=== PATIENT | male | born 1955 | race Caucasian/White ===

== ENCOUNTER 2022-12-21 08:55 | Emergency (ER) | payer MEDICARE, MEDICAID ==
[~2022-12-21] VITALS: Ht 154.9 cm; Wt 69.1 kg
[~2022-12-21 08:55] MED LIST: AMLO-258 PO; ASPI-1450 PO; SIMV-260 PO
[2022-12-21] MEDS ORDERED: CYAN500T56 PO (09:06)
[2022-12-21] MEDS ORDERED: PANT-31 PO (09:06)
[2022-12-21] MEDS ORDERED: TAMS-13 PO (09:06)
[2022-12-21] MEDS ORDERED: DULO-113 PO (09:06)
[2022-12-21] MEDS ORDERED: ROSU10TA72 PO (09:06)
[2022-12-21] MEDS ORDERED: NIFE-46 PO (09:06)
[2022-12-21] MEDS ORDERED: PYRI-6 PO (09:06)
[2022-12-21] MEDS ORDERED: CARV12.530 PO (09:06)
[2022-12-21] MEDS ORDERED: PIOG15TA6 PO (09:06)
[2022-12-21] MEDS ORDERED: OMEP20 PO (09:06)
[2022-12-21] MEDS ORDERED: INSULIN SQ (09:06)
[2022-12-21] MEDS ORDERED: FINA-27 PO (09:06)
[2022-12-21] MEDS ORDERED: TRAZ-252 PO (09:06)
[2022-12-21] MEDS ORDERED: GABA-1181 PO (09:06)
[2022-12-21] MEDS ORDERED: EZET10TA13 PO (09:06)
[2022-12-21] MEDS ORDERED: CHOL25TA4 PO (09:06)
[2022-12-21] MEDS ORDERED: CHLO25TA3 PO (09:06)
[2022-12-21] MEDS ORDERED: INSULIN REGULAR, HUMAN 100 UNITS/ML IVP ONE (09:30)
[2022-12-21 10:28] LABS: BASOPHILS % (AUTO) 0.3 % (0.0-2.0); EOSINOPHILS % (AUTO) 1.3 % (1.0-6.0); HEMATOCRIT 36.9 % (41-53); HEMOGLOBIN 12.3 g/dL (13.5-17.5); LYMPHOCYTES # (AUTO) 1.4 K/uL (1.0-4.8); LYMPHOCYTES % (AUTO) 18.9 % (22.0-44.0); MEAN CORPUSCULAR HEMOGLOBIN 30.7 pg (26.0-34.0); MEAN CORPUSCULAR HGB CONC 33.2 G/dL (31.0-37.0); MEAN CORPUSCULAR VOLUME 93 fL (80-100); MONOCYTES # (AUTO) 0.7 K/uL (0.1-1.0); MONOCYTES % (AUTO) 9.8 % (2.0-9.0); NEUTROPHILS # (AUTO) 5.2 K/uL (1.8-7.7); NEUTROPHILS % (AUTO) 69.7 % (40.0-70.0); PLATELET COUNT (AUTO) 167 K/uL (150-450); RED BLOOD CELL COUNT(AUTO) 3.99 MIL/uL (4.50-5.90); RED CELL DISTRIBUTION WIDTH 14.1 % (11.5-14.5)
[2022-12-21] MEDS ORDERED: HydrALAZINE HCL 20 MG/ML VIAL IVP ONE (10:30)
[2022-12-21 10:38] LABS: INR 0.9 (0.9-1.1); PROTHROMBIN TIME 9.7 SEC (9.4-11.6)
[2022-12-21 10:57] LABS: B-TYPE NATRIURETIC PEPTIDE 83 pg/mL (0-100)
[2022-12-21 10:59] LABS: ALANINE AMINOTRANSFERASE 12 U/L (12-78); ALBUMIN 3.1 g/dL (3.4-5.0); ALKALINE PHOSPHATASE 120 U/L (46-116); ANION GAP 10 mmol/L (8-16); ASPARTATE AMINOTRANSFERASE 7 U/L (15-37); BILIRUBIN,TOTAL 0.2 mg/dL (0.1-1.0); CALCIUM, TOTAL 9.1 mg/dL (8.8-10.5); CARBON DIOXIDE 26 mmol/L (22-29); CHLORIDE 101 mmol/L (98-107); CREATINE KINASE, TOTAL ONLY 57 U/L (39-308); CREATININE 1.39 mg/dL (0.60-1.30); GLOMERULAR FILTR. RATE CALC 51 mL/min (>60); POTASSIUM 4.8 mmol/L (3.5-5.1); SODIUM SERUM 137 mmol/L (136-145); TOTAL PROTEIN, SERUM 6.4 g/dL (6.4-8.2); UREA NITROGEN, BLOOD 37 mg/dL (7-18)
[2022-12-21 11:00] LABS: APPEARANCE,URINE CLEAR (CLEAR); BILIRUBIN,URINE NEGATIVE (NEGATIVE); GLUCOSE, URINE (UA) >=1000 mg/dL (NEGATIVE); KETONES,URINE NEGATIVE (NEGATIVE); LEUKOCYTE ESTERASE ,URINE NEGATIVE (NEGATIVE); NITRATE,URINE NEGATIVE (NEGATIVE); OCCULT BLOOD,URINE NEGATIVE (NEGATIVE); PROTEIN,URINE NEGATIVE (NEGATIVE); SPECIFIC GRAVITIY, URINE 1.033 (1.003-1.030); UROBILINOGEN,URINE <=1.0 mg/dL (<=1.0)
[2022-12-21 11:05] LABS: GLUCOSE,RANDOM 498 mg/dL (70-110)
[2022-12-21 11:10] LABS: COVID AG,FIA SOURCE NASAL SWAB
[2022-12-21] MEDS ORDERED: LIDOCAINE 5% TRANSDERMAL PATCH TD ONE (11:30)
[2022-12-21] MEDS ORDERED: TraMADol HCL 50 MG TABLET PO ONE (11:30)
[2022-12-21 11:37] LABS: RBC,URINE None Seen /HPF (0-2); WBC,URINE 0-2 /HPF (0-5)
[2022-12-21 11:46] LABS: ACETONE,BLOOD NEGATIVE (NEGATIVE)
[2022-12-21 11:46] LABS: GLUCOSE,POINT OF CARE 206 MG/DL (70-110)
[2022-12-21] MEDS ORDERED: AmLODIPine BESYLATE 5 MG TABLET PO ONE (12:45)
[2022-12-21] MEDS ORDERED: TRAM-559 PO (12:51)
[2022-12-21] MEDS ORDERED: CYCL-448 PO (12:51)
[2022-12-21 13:05] VITALS: BP 152/97
== END 2022-12-21 13:23 | disposition home or self-care (01) ==
LOC: EMS 09:03
DX: G89.29 Other chronic pain (principal); M54.50 Low back pain, unspecified; M54.31 Sciatica, right side; E11.65 Type 2 diabetes mellitus with hyperglycemia; I10 Essential (primary) hypertension; E78.00 Pure hypercholesterolemia, unspecified; Z98.890 Other specified postprocedural states; Z20.822 Contact with and (suspected) exposure to COVID-19
CPT/HCPCS: 99285; 96374; 71045; 96375; 87426; 80053; 81001; 82009; 82550; 82962; 83880; 84484; 85025; 85610; 36415; 93005; J0360; J1815

== ENCOUNTER 2025-08-06 08:22 | Inpatient (IN) | payer MEDICARE, MEDICAID ==
[2025-08-06] VITALS (13 sets, daily range): BP systolic 129–188; BP diastolic 85–117; PULSE 77–93; RESP 17–35; TEMP 97.4–97.9; O2SAT 93–99
[~2025-08-06] VITALS: Ht 162.6 cm; Wt 81.8 kg
[~2025-08-06 08:22] MED LIST changes: +CARV12.530 PO; +CHLO25TA3 PO; +CHOL25TA4 PO; +CYAN500T56 PO; +CYCL-448 PO; +DULO60CA73 PO; +EZET10TA82 PO; +FINA-27 PO; +GABA-1181 PO; +INSULIN SQ; +NIFE-46 PO; +OMEP-148 PO; +PANT-31 PO; +PIOG15TA6 PO; +PYRI-9 PO; +ROSU10TA98 PO; -SIMV-260 PO; +TAMS0.4C94 PO; +TRAM50TA5 PO; +TRAZ-252 PO
[2025-08-06] MEDS: NITROGLYCERIN 2% (1 GM=INCH) OINTMENT PACKET TP ONE (08:50)
[2025-08-06] MEDS: FUROSEMIDE 20 MG/2 ML VIAL IVP ONE ×2 (08:50→11:53)
[2025-08-06] MEDS: ASPIRIN 325 MG TABLET PO ONE (08:50)
[2025-08-06] MEDS: NITROGLYCERIN 0.4 MG SUBLINGUAL TABLET #25 SL ONE (08:51)
[2025-08-06 08:53] LABS: PLATELET COUNT (AUTO) 267 K/uL (150-450); RED BLOOD CELL COUNT(AUTO) 3.94 MIL/uL (4.50-5.90); RED CELL DISTRIBUTION WIDTH 14.8 % (11.5-14.5); WHITE BLOOD COUNT (AUTO) 8.4 K/uL (4.5-11.0)
[2025-08-06 08:58] LABS: CALCIUM, TOTAL 8.6 mg/dL (8.8-10.5); CREATININE 1.49 mg/dL (0.60-1.30); GLOMERULAR FILTR. RATE CALC 47 mL/min (>60); GLUCOSE,RANDOM 153 mg/dL (70-110); SODIUM SERUM 144 mmol/L (136-145); UREA NITROGEN, BLOOD 23 mg/dL (7-18)
[2025-08-06 09:07] LABS: TROPONIN I-HIGH SENSITIVITY 3676 ng/L (<76)
[2025-08-06] MEDS ORDERED: HEPARIN SODIUM,PORCINE 5,000 UNITS/ML VIAL IVP PRN ×4 (09:15→16:15)
[2025-08-06 09:33] LABS: CHOL/HDL RATIO 5.1 (4.2-7.3); LDL CHOL (CALC.) 121.0 mg/dL (0-130)
[2025-08-06] MEDS: NITROGLYCERIN 50 MG/D5% WATER 250 ML IV PRN (09:35)
[2025-08-06] MEDS: HEPARIN SODIUM,PORCINE 5,000 UNITS/ML VIAL IVP ONE (09:38)
[2025-08-06] MEDS: HEPARIN SODIUM 25000 UNITS/D5W 250 ML IV PRN (09:41)
[2025-08-06] MEDS: ATORVASTATIN CALCIUM 40 MG TABLET PO ONE (09:41)
[2025-08-06] MEDS ORDERED: IOHEXOL 300 MG/ML 100 ML VIAL ONE (09:51)
[2025-08-06] MEDS ORDERED: SODIUM BICARBONATE 50 MEQ/50 ML VIAL ONE (09:51)
[2025-08-06] MEDS ORDERED: LIDOCAINE/PF 1% 30 ML VIAL ONE (09:51)
[2025-08-06] MEDS ORDERED: HEPARIN SODIUM 1000 UNITS/NS 1,000 ML ONE (09:52)
[2025-08-06] MEDS: METOPROLOL TARTRATE 25 MG TABLET PO ONE (10:00)
[2025-08-06 10:08] LABS: TROPONIN I-HIGH SENSITIVITY 3170 ng/L (<76)
[2025-08-06] MEDS ORDERED: FUROSEMIDE 20 MG/2 ML VIAL ONE (10:12)
[2025-08-06] MEDS ORDERED: VERAPAMIL HCL 2.5 MG/ML 2 ML VIAL ONE (10:16)
[2025-08-06] MEDS ORDERED: NITROGLYCERIN 50 MG/D5% WATER 250 ML ONE (10:17)
[2025-08-06 10:19] LABS: LACTIC ACID < 0.3 mmol/L (0.4-2.0)
[2025-08-06] MEDS: VERAPAMIL HCL 2.5 MG/ML 2 ML VIAL IARTER ONE (11:53)
[2025-08-06] MEDS: LIDOCAINE 1% 30 ML/SOD BICARB 8.4% 4 ML SQ ONE (11:53)
[2025-08-06] MEDS: NITROGLYCERIN/D5W 50 MG/250 ML IV BOTTLE IARTER ONE (11:54)
[2025-08-06] MEDS: IOHEXOL 300 MG/ML 100 ML VIAL ICOR ONE (11:54)
[2025-08-06] MEDS: HEPARIN SODIUM,PORCINE 1,000 UNITS/ML 10 ML VIAL IARTER ONE (11:55)
[2025-08-06] MEDS: SODIUM CHLORIDE 0.9% 500 ML IV ONE (11:55)
[2025-08-06] MEDS: HEPARIN SODIUM 1000 UNITS/NS 1,000 ML IARTER ONE (11:56)
[2025-08-06] MEDS: METOPROLOL SUCCINATE 50 MG ER TABLET PO SCH (13:11)
[2025-08-06 13:26] LABS: GLUCOMETER DEV NAME(LOC) ICU.S7; GLUCOSE,POINT OF CARE 122 MG/DL (70-110)
[2025-08-06] MEDS: ACETAMINOPHEN 325 MG TABLET PO PRN (13:30)
[2025-08-06] MEDS ORDERED: ONDANSETRON HCL 4 MG/2 ML VIAL IVP PRN (13:45)
[2025-08-06] MEDS ORDERED: HYDROCODONE/ACETAMINOPHEN 5-325 MG TABLET PO PRN (13:45)
[2025-08-06] MEDS ORDERED: ACETAMINOPHEN 325 MG TABLET PO PRN (13:45)
[2025-08-06] MEDS ORDERED: MAGNESIUM HYDROXIDE SUSPENSION 30 ML UDCUP PO PRN (13:45)
[2025-08-06] MEDS ORDERED: ZOLPIDEM TARTRATE 5 MG TABLET PO PRN (13:45)
[2025-08-06] MEDS ORDERED: MORPHINE SULFATE 4 MG/ML SYRINGE IVP PRN (13:45)
[2025-08-06] MEDS ORDERED: IPRATROPIUM BROMIDE 0.5 MG/2.5 ML NEB SOLUTION NEB PRN (13:45)
[2025-08-06] MEDS ORDERED: ALBUTEROL SULFATE 2.5 MG/0.5 ML NEB SOLUTION NEB PRN (13:45)
[2025-08-06] MEDS ORDERED: BISACODYL 10 MG RECTAL RECTAL SUPPOSITORY PR PRN (13:45)
[2025-08-06] MEDS ORDERED: DEXTROSE 50%-WATER 25 GM/50 ML SYRINGE IVP PRN (14:30)
[2025-08-06] MEDS ORDERED: HEPARIN SODIUM 25000 UNITS/D5W 250 ML IV PRN (16:15)
[2025-08-06] MEDS ORDERED: NITROGLYCERIN 50 MG/D5% WATER 250 ML IV PRN (16:15)
[2025-08-06] MEDS: INSULIN LISPRO 100 UNITS/ML SQ PRN (17:14)
[2025-08-06 18:30] LABS: GLUCOMETER DEV NAME(LOC) ICU.S7; GLUCOSE,POINT OF CARE 170 MG/DL (70-110)
[2025-08-06] MEDS: DOCUSATE SODIUM 100 MG CAPSULE PO SCH (20:36)
[2025-08-06] MEDS: ETHYL ALCOHOL 62% ANTISEPTIC NASAL SANITIZER 0.6 ML AMPUL NASAL SCH (20:36)
[2025-08-06 22:35] LABS: GLUCOMETER DEV NAME(LOC) ICUN.7; GLUCOSE,POINT OF CARE 171 MG/DL (70-110)
[2025-08-07] VITALS: BP 130/78; PULSE 85; RESP 26; TEMP 97.9; O2SAT 94
[2025-08-07] MEDS ORDERED: HEPARIN SODIUM,PORCINE 5,000 UNITS/ML VIAL SQ SCH (07:00)
[2025-08-07] MEDS ORDERED: ATORVASTATIN CALCIUM 40 MG TABLET PO SCH (09:00)
[2025-08-07] MEDS ORDERED: TAMSULOSIN HCL 0.4 MG CAPSULE PO SCH (09:00)
[2025-08-07] MEDS ORDERED: PANTOPRAZOLE SODIUM 40 MG DR TABLET PO SCH (09:00)
[2025-08-07] MEDS ORDERED: ASPIRIN 81 MG CHEWABLE TABLET PO SCH (09:00)
[2025-08-07] MEDS ORDERED: FINASTERIDE 5 MG TABLET PO SCH (09:00)
== END 2025-08-07 00:13 | disposition short-term general hospital (02) | DRG 280 ==
LOC: EMS 08:27 → EDH 09:54 → ICU 11:45
PROVIDERS: ADMIT Hospitalist; ATTEND Hospitalist
PROC: 4A023N7 Measurement of Cardiac Sampling and Pressure, Left Heart, Percutaneous Approach (ICD-10-PCS; principal; 2025-08-06)
PROC: B2111ZZ Fluoroscopy of Multiple Coronary Arteries using Low Osmolar Contrast (ICD-10-PCS; 2025-08-06)
DX: I21.4 Non-ST elevation (NSTEMI) myocardial infarction (principal); I50.31 Acute diastolic (congestive) heart failure; I13.0 Hypertensive heart and chronic kidney disease with heart failure and stage 1 through stage 4 chronic kidney disease, or unspecified chronic kidney disease; I25.10 Atherosclerotic heart disease of native coronary artery without angina pectoris; E11.22 Type 2 diabetes mellitus with diabetic chronic kidney disease; E78.00 Pure hypercholesterolemia, unspecified; N18.30 Chronic kidney disease, stage 3 unspecified; N40.0 Benign prostatic hyperplasia without lower urinary tract symptoms; G89.29 Other chronic pain; Z86.73 Personal history of transient ischemic attack (TIA), and cerebral infarction without residual deficits; Z79.899 Other long term (current) drug therapy
CPT/HCPCS: 71045; 80048; 80061; 82962; 83036; 83605; 83690; 83735; 83880; 84484; 85025; 85610; 85730; 87081; 93005; 93306; 96374; 96375; 96376; 99291; J1644; J1938; J3490; Q9967; 36415-L1; 36415-TC; Z7610